=== PATIENT | female | born 1975 | race Two or more races ===

== ENCOUNTER 2023-06-01 09:58 | Emergency (ER) | payer MEDICAID ==
[~2023-06-01] VITALS: Ht 160 cm; Wt 71.1 kg
[2023-06-01] MEDS ORDERED: KETOROLAC TROMETH 60MG/2ML VIAL IM ONE (12:00)
[2023-06-01] MEDS ORDERED: HYDROcodone-ACET 10/325MG TAB PO ONE (12:00)
[2023-06-01 13:47] VITALS: BP 120/47; PULSE 75; RESP 18; TEMP 97.6; O2SAT 94
[2023-06-01] MEDS ORDERED: PERCOT PO (13:51)
[2023-06-01] MEDS ORDERED: IBUP-1455 PO (13:51)
== END 2023-06-01 14:31 | disposition home or self-care (01) ==
LOC: ER 09:58
DX: S16.1XXA Strain of muscle, fascia and tendon at neck level, initial encounter (principal); S40.012A Contusion of left shoulder, initial encounter; V43.62XA Car passenger injured in collision with other type car in traffic accident, initial encounter; Y93.89 Activity, other specified; Y92.89 Other specified places as the place of occurrence of the external cause; Y99.8 Other external cause status
CPT/HCPCS: 71111; 72040; 72170; 73030; 73552; 96372; 99284; J1885

== ENCOUNTER 2024-03-26 13:32 | Emergency (ER) | payer MEDICAID ==
[~2024-03-26] VITALS: Ht 162.6 cm; Wt 69.2 kg
[~2024-03-26 13:32] MED LIST: IBUP-1455 PO; PERCOT PO
[2024-03-26 15:14] VITALS: BP 151/91; PULSE 73; RESP 20; TEMP 98.9; O2SAT 93
[2024-03-26] MEDS: KETOROLAC TROMETH 30 MG/ML 1ML VIAL IM ONE (15:20)
[2024-03-26] MEDS ORDERED: NAPR-746 PO (15:59)
== END 2024-03-26 16:08 | disposition home or self-care (01) ==
LOC: ER 13:32
DX: M72.2 Plantar fascial fibromatosis (principal)
CPT/HCPCS: 73650; 96372; 99283; J1885